=== PATIENT | male | born 1965 | race Caucasian/White ===

== ENCOUNTER → 2021-04-13 | Outpatient (REF) ==
--- NOTE | 2021-04-13 13:07 | REP ---
INDICATION: BACK + NECK PAIN COMPARISON: None. TECHNIQUE: AP, lateral, coned-down views of the lumbar spine. FINDINGS: Alignment and lordosis is maintained through the L4-5 level with moderate multilevel disc space narrowing, endplate sclerosis and subtle marginal spurring. L5-S1 demonstrates chronic bilateral spondylolysis and grade 2 anterolisthesis. No acute fracture/compression injury. IMPRESSION: Chronic L5 spondylolysis with grade 2 spondylolisthesis at L5-S1. Moderate degenerative changes throughout the remainder of the lumbar spine. <Electronically signed by Ghassan Fierro > 04/13/21 [id number]
--- NOTE | 2021-04-13 13:09 | REP ---
INDICATION: BACK + NECK PAIN. COMPARISON: None. TECHNIQUE: AP, lateral, open mouth views of the cervical spine FINDINGS: Moderate to advanced degenerative changes include endplate sclerosis/heterogeneity, disc space narrowing and osteophytosis primarily involving C2-3 and C5-6, C6-7. Mild retrolisthesis at the C2-3 level of 4 mm noted along with mild anterolisthesis of approximately 6 mm at the C7-T1 level. No acute fracture/compression injury. IMPRESSION: Moderate to advanced multilevel degenerative spondylosis. <Electronically signed by Ghassan Fierro > 04/13/21 [id number]
== END ==
LOC: M PLAIMG 12:30
PROVIDERS: ATTEND Internal Medicine
DX: M43.06 Spondylolysis, lumbar region (principal); M25.78 Osteophyte, vertebrae; M47.892 Other spondylosis, cervical region

== ENCOUNTER 2022-07-12 03:18 | Day surgery (SDC) | payer MEDICAID, SELFPAY ==
[~2022-07-12] VITALS: Ht 172.7 cm; Wt 70.1 kg
[2022-07-12] MEDS ORDERED: MORPHINE 2 MG/ML 1ML VIAL IV ONE (05:00)
[2022-07-12] MEDS ORDERED: MIDAZOLAM INJ 2MG/2ML VIAL IV STA (05:04)
[2022-07-12] MEDS ORDERED: MIDAZOLAM INJ 2MG/2ML VIAL IV ONE (05:05)
[2022-07-12] MEDS ORDERED: fentaNYL 100 MCG/2 ML INJECTION IV ONE ×2 (05:05)
[2022-07-12] MEDS ORDERED: propofoL 200 MG/20 ML VIAL As Ordered ONE ×2 (05:38→07:15)
[2022-07-12] MEDS ORDERED: propofoL 200 MG/20 ML VIAL IV.PROC PRN (05:40)
[2022-07-12] MEDS ORDERED: NS 1,000 ML IV SCH (05:40)
[2022-07-12] MEDS ORDERED: MORPHINE 4 MG/ML 1ML VIAL IV ONE (06:25)
[2022-07-12 06:53] LABS: BASO % 0.2 % (0.0-1.0); HEMATOCRIT 40.9 % (42.0-52.0); HEMOGLOBIN 13.7 g/dl (13.5-17.5); LYMPH # 0.6 10^3/uL (1.5-5.0); LYMPH % 3.2 % (24.0-44.0); MEAN CORPUSCULAR HGB CONC 33.5 g/dl (32.0-36.5); MEAN CORPUSCULAR VOLUME 95.6 fl (80.0-96.0); MONO # 0.7 10^3/uL (0.0-0.8); MONO % 3.9 % (2.0-8.0); NEUTROPHILS # 17.3 10^3/uL (1.5-8.5); NEUTROPHILS % 92.2 % (36.0-66.0); PLATELET COUNT, AUTOMATED 195 10^3/uL (150-450); RED BLOOD COUNT 4.28 10^6/uL (4.30-6.10); WHITE BLOOD COUNT 18.8 10^3/uL (4.0-10.0)
[2022-07-12] MEDS ORDERED: diphenhydrAMINE 50MG/ML VIAL IV STA (06:56)
[2022-07-12] MEDS ORDERED: LIDOCAINE 2% 100MG/5ML SDV (FOR ANES.) As Ordered ONE (07:15)
[2022-07-12 07:17] LABS: RSV AMPLIFICATION NEGATIVE (NEGATIVE)
[2022-07-12 07:28] LABS: MAGNESIUM LEVEL 1.9 MG/DL (1.8-2.4)
[2022-07-12 07:30] LABS: BLOOD UREA NITROGEN 19 MG/DL (9-23); CALCIUM LEVEL 7.9 MG/DL (8.5-10.1); CARBON DIOXIDE LEVEL 25 MMOL/L (20-31); CHLORIDE LEVEL 109 MMOL/L (98-107); CREATININE FOR GFR 0.86 MG/DL (0.70-1.30); GLOMERULAR FILTRATION RATE > 60.0 (>56); GLUCOSE, FASTING 112 MG/DL (60-100); POTASSIUM SERUM 3.7 MMOL/L (3.5-5.1); SODIUM LEVEL 141 MMOL/L (136-145)
[2022-07-12] MEDS ORDERED: fentaNYL 100 MCG/2 ML INJECTION As Ordered ONE (08:22)
[2022-07-12] MEDS ORDERED: MIDAZOLAM INJ 2MG/2ML VIAL As Ordered ONE (08:22)
[2022-07-12] MEDS ORDERED: oxyCODONE 5MG TAB PO PRN (09:00)
[2022-07-12] MEDS ORDERED: ONDANSETRON 4MG 2ML VIAL IV PRN (09:00)
[2022-07-12] MEDS ORDERED: fentaNYL 100 MCG/2 ML INJECTION IV PRN (09:00)
[2022-07-12] MEDS: HYDROMORPHONE HCL 0.5 MG/ 0.5 ML SYRINGE IV PRN ×2 (09:13→09:19)
[2022-07-12 10:04] VITALS: BP 152/84
== END 2022-07-12 10:05 | disposition home or self-care (01) ==
LOC: M ED 03:18 → M SDC 03:19
PROVIDERS: ATTEND Orthopaedic Surgery
DX: S43.015A Anterior dislocation of left humerus, initial encounter (principal); S42.252A Displaced fracture of greater tuberosity of left humerus, initial encounter for closed fracture; Y92.092 Bedroom in other non-institutional residence as the place of occurrence of the external cause; F31.9 Bipolar disorder, unspecified
CPT/HCPCS: 23650; 23655; 73020; 73030; 80048; 83735; 85025; 87631; 93005; 93041; 94760; 96374; 96375; 96376; 99285; J2405

== ENCOUNTER → 2022-07-20 | Outpatient (CLI) | payer MEDICAID | LOC: M SOG 07:50 | PROVIDERS: ATTEND Orthopaedic Surgery | DX: S42.252D Displaced fracture of greater tuberosity of left humerus, subsequent encounter for fracture with routine healing (principal) ==

== ENCOUNTER → 2022-07-27 | Outpatient (CLI) | payer MEDICAID | LOC: M PLAIMG 07:43 | PROVIDERS: ATTEND Orthopaedic Surgery | DX: S43.005D Unspecified dislocation of left shoulder joint, subsequent encounter (principal) ==

== ENCOUNTER → 2022-10-05 | Outpatient (CLI) | payer MEDICAID, OTHER | LOC: M SOG 08:20 | PROVIDERS: ATTEND Orthopaedic Surgery | DX: S43.015D Anterior dislocation of left humerus, subsequent encounter (principal) ==

== ENCOUNTER → 2022-11-05 | Outpatient (CLI) | payer OTHER | LOC: M RAD 08:15 | PROVIDERS: ATTEND Orthopaedic Surgery | DX: S44.32XA Injury of axillary nerve, left arm, initial encounter (principal); S42.255A Nondisplaced fracture of greater tuberosity of left humerus, initial encounter for closed fracture ==

== ENCOUNTER → 2023-01-10 | Outpatient (CLI) | payer OTHER | LOC: M SOG 08:36 | PROVIDERS: ATTEND Physician Assistant | DX: M25.532 Pain in left wrist (principal) ==

== ENCOUNTER → 2023-03-27 | Outpatient (REF) | payer OTHER ==
[2023-03-27 14:02] LABS: APPEARANCE, URINE CLEAR (CLEAR); BACTERIA, URINE AUTO NEGATIVE (NEGATIVE); BILIRUBIN, URINE AUTO NEGATIVE (NEGATIVE); BLOOD, URINE BLOOD NEGATIVE (NEGATIVE); COLOR, URINE STRAW (YELLOW); GLUCOSE, URINE (UA) AUTO NEGATIVE (NEGATIVE); KETONE, URINE AUTO NEGATIVE (NEGATIVE); LEUKOCYTE ESTERASE, URINE AUTO NEGATIVE (NEGATIVE); NITRITE, URINE AUTO NEGATIVE (NEGATIVE); PROTEIN, URINE AUTO NEGATIVE (NEGATIVE); RBC, URINE AUTO 0 /HPF (0-3); SPECIFIC GRAVITY URINE AUTO 1.011 (1.002-1.035); SQUAMOUS EPITHELIAL CELL UR AU 0 /HPF (0-6); UROBILINOGEN, URINE AUTO 0.2 mg/dL (0.0-2.0); WBC, URINE AUTO 0 /HPF (0-3)
[2023-03-27 14:11] LABS: BASO # 0.1 10^3/uL (0.0-0.2); BASO % 0.9 % (0.0-1.0); EOS # 0.1 10^3/uL (0.0-0.5); EOS % 1.2 % (0.0-3.0); HEMATOCRIT 41.2 % (42.0-52.0); HEMOGLOBIN 14.3 g/dl (13.5-17.5); LYMPH # 2.2 10^3/uL (1.5-5.0); LYMPH % 26.9 % (24.0-44.0); MEAN CORPUSCULAR HEMOGLOBIN 31.6 pg (27.0-33.0); MEAN CORPUSCULAR HGB CONC 34.7 g/dl (32.0-36.5); MEAN CORPUSCULAR VOLUME 91.2 fl (80.0-96.0); MONO # 0.5 10^3/uL (0.0-0.8); MONO % 6.1 % (2.0-8.0); NEUTROPHILS # 5.3 10^3/uL (1.5-8.5); NEUTROPHILS % 64.8 % (36.0-66.0); PLATELET COUNT, AUTOMATED 217 10^3/uL (150-450); RED BLOOD COUNT 4.52 10^6/uL (4.30-6.10); WHITE BLOOD COUNT 8.2 10^3/uL (4.0-10.0)
[2023-03-27 14:24] LABS: ERYTHROCYTE SEDIMENTATION RATE 5 mm/hr (0-20)
[2023-03-27 14:41] LABS: FREE T4 1.21 NG/DL (0.89-1.76); THYROID STIMULATING HORMONE 0.626 uIU/ML (0.55-4.78)
[2023-03-27 14:42] LABS: C REACTIVE PROTEIN QUANTITATIV < 0.40 MG/DL (<1.0); URIC ACID 3.1 MG/DL (3.7-9.2)
[2023-03-27 14:43] LABS: TOTAL 25(OH) VITAMIN D 45.1 NG/ML (20.0-100.0)
[2023-03-27 14:44] LABS: ALBUMIN 3.8 G/DL (3.2-5.2); ALKALINE PHOSPHATASE 48 U/L (46-116); ALT/SGPT 24 U/L (7.0-40); AST/SGOT 19 U/L (<34); BILIRUBIN,TOTAL 0.3 MG/DL (0.3-1.2); BLOOD UREA NITROGEN 20 MG/DL (9-23); CALCIUM LEVEL 9.1 MG/DL (8.5-10.1); CARBON DIOXIDE LEVEL 27 MMOL/L (20-31); CHLORIDE LEVEL 106 MMOL/L (98-107); CHOLESTEROL LEVEL 115 MG/DL (<200); CHOLESTEROL RISK RATIO 2.37 (<5); CREATININE FOR GFR 0.87 MG/DL (0.70-1.30); GLOMERULAR FILTRATION RATE > 60.0 (>56); GLUCOSE, FASTING 109 MG/DL (60-100); HDL CHOLESTEROL 48.4 MG/DL (>40); LDL CHOLESTEROL 49.2 MG/DL (<100); NON-HDL-C 66.6 MG/DL; POTASSIUM SERUM 4.4 MMOL/L (3.5-5.1); SODIUM LEVEL 139 MMOL/L (136-145); TOTAL PROTEIN 6.3 G/DL (5.7-8.2); TRIGLYCERIDES LEVEL 87 MG/DL (<150)
[2023-03-27 14:45] LABS: RHEUMATOID FACTOR QUANT < 3.5 IU/ML (<14); VITAMIN B12 LEVEL 750 PG/ML (211-911)
[2023-03-27 14:46] LABS: FOLATE 22.3 NG/ML (>5.4)
[2023-03-27 15:24] LABS: HEPATITIS C VIRUS ABY INDEX 0.05 INDEX (<0.8); HIV 1&2 SCREEN NEGATIVE (NEGATIVE)
[2023-03-27 15:26] LABS: GC DNA AMPLIFICATION NEGATIVE (NEGATIVE)
== END ==
LOC: M SFHCADAM 09:26
PROVIDERS: ATTEND Physician Assistant
DX: Z00.00 Encounter for general adult medical examination without abnormal findings (principal); M25.649 Stiffness of unspecified hand, not elsewhere classified; Z11.3 Encounter for screening for infections with a predominantly sexual mode of transmission

== ENCOUNTER → 2023-04-04 | Outpatient (CLI) | payer OTHER | LOC: M SOG 08:06 | PROVIDERS: ATTEND Physician Assistant | DX: M25.532 Pain in left wrist (principal) ==

== ENCOUNTER → 2023-04-28 | Outpatient (CLI) | payer OTHER | LOC: M SOG 07:56 | PROVIDERS: ATTEND Orthopaedic Surgery | DX: M54.2 Cervicalgia (principal); M47.812 Spondylosis without myelopathy or radiculopathy, cervical region ==

== ENCOUNTER → 2023-05-16 | Outpatient (CLI) | payer OTHER | LOC: M PLAIMG 08:16 | PROVIDERS: ATTEND Orthopaedic Surgery | DX: M47.22 Other spondylosis with radiculopathy, cervical region (principal) ==

== ENCOUNTER → 2023-12-27 | Outpatient (CLI) | payer MEDICARE, OTHER | LOC: M RAD 11:43 | PROVIDERS: ATTEND Physician Assistant | DX: R22.41 Localized swelling, mass and lump, right lower limb (principal) ==

== ENCOUNTER → 2024-02-09 | Outpatient (REF) | payer MEDICARE, OTHER | LOC: M LAB REF 17:04 | PROVIDERS: ATTEND Surgery | DX: D17.23 Benign lipomatous neoplasm of skin and subcutaneous tissue of right leg (principal) ==

== ENCOUNTER → 2024-06-04 | Outpatient (CLI) | payer MEDICARE, OTHER ==
[2024-06-04 09:03] LABS: BASO # 0.1 10^3/uL (0.0-0.2); BASO % 0.6 % (0.0-1.0); EOS # 0.1 10^3/uL (0.0-0.5); EOS % 1.4 % (0.0-3.0); HEMATOCRIT 42.2 % (42.0-52.0); HEMOGLOBIN 14.1 g/dl (13.5-17.5); LYMPH # 1.6 10^3/uL (1.5-5.0); LYMPH % 18.7 % (24.0-44.0); MEAN CORPUSCULAR HGB CONC 33.4 g/dl (32.0-36.5); MEAN CORPUSCULAR VOLUME 95.9 fl (80.0-96.0); MONO # 0.6 10^3/uL (0.0-0.8); MONO % 6.8 % (2.0-8.0); NEUTROPHILS % 72.3 % (36.0-66.0); PLATELET COUNT, AUTOMATED 198 10^3/uL (150-450); WHITE BLOOD COUNT 8.4 10^3/uL (4.0-10.0)
[2024-06-04 09:28] LABS: ALBUMIN 3.9 G/DL (3.2-5.2); ALKALINE PHOSPHATASE 43 U/L (40-129); ALT/SGPT 26 U/L (7.0-40); AST/SGOT 20 U/L (<34); BILIRUBIN,TOTAL 0.3 MG/DL (0.3-1.2); BLOOD UREA NITROGEN 21 MG/DL (9-23); CALCIUM LEVEL 9.1 MG/DL (8.5-10.1); CARBON DIOXIDE LEVEL 27 MMOL/L (20-31); CHLORIDE LEVEL 107 MMOL/L (98-107); CHOLESTEROL LEVEL 134 MG/DL (<200); CHOLESTEROL RISK RATIO 2.64 (<5); FREE T4 1.11 NG/DL (0.89-1.76); GLOMERULAR FILTRATION RATE > 60.0 (>56); GLUCOSE, FASTING 83 MG/DL (60-100); HDL CHOLESTEROL 50.7 MG/DL (>40); LDL CHOLESTEROL 55.7 MG/DL (<100); NON-HDL-C 83.3 MG/DL; POTASSIUM SERUM 4.4 MMOL/L (3.5-5.1); SODIUM LEVEL 141 MMOL/L (136-145); TOTAL PROTEIN 6.6 G/DL (5.7-8.2); TRIGLYCERIDES LEVEL 138 MG/DL (<150)
[2024-06-04 09:29] LABS: HEMOGLOBIN A1c 5.3 % (4.0-6.0); THYROID STIMULATING HORMONE 0.664 uIU/ML (0.55-4.78)
== END ==
LOC: M LAB 08:12
PROVIDERS: ATTEND Family Medicine
DX: Z00.00 Encounter for general adult medical examination without abnormal findings (principal); E78.00 Pure hypercholesterolemia, unspecified

== ENCOUNTER → 2025-05-27 | Outpatient (CLI) | payer MEDICARE, MEDICAID ==
[2025-05-27 13:10] LABS: BASO # 0.0 10^3/uL (0.0-0.2); BASO % 0.6 % (0.0-1.0); EOS # 0.0 10^3/uL (0.0-0.5); EOS % 0.6 % (0.0-3.0); LYMPH # 1.6 10^3/uL (1.5-5.0); LYMPH % 22.6 % (24.0-44.0); MONO # 0.6 10^3/uL (0.0-0.8); MONO % 8.9 % (2.0-8.0); NEUTROPHILS # 4.7 10^3/uL (1.5-8.5); NEUTROPHILS % 67.2 % (36.0-66.0); PLATELET COUNT, AUTOMATED 190 10^3/uL (150-450)
[2025-05-27 13:17] LABS: C REACTIVE PROTEIN QUANTITATIV < 0.50 MG/DL (<1.0)
[2025-05-27 13:18] LABS: ALT/SGPT 33 U/L (7.0-40); AST/SGOT 37 U/L (<34); CALCIUM LEVEL 9.1 MG/DL (8.3-10.6); CARBON DIOXIDE LEVEL 28 MMOL/L (20-31); CHLORIDE LEVEL 104 MMOL/L (98-107); CHOLESTEROL LEVEL 120 MG/DL (<200); CHOLESTEROL RISK RATIO 2.20 (<5); CREATININE FOR GFR 0.96 MG/DL (0.70-1.30); GLOMERULAR FILTRATION RATE > 90.0 (>49); LDL CHOLESTEROL 55.8 MG/DL (<100); NON-HDL-C 65.6 MG/DL; POTASSIUM SERUM 4.4 MMOL/L (3.5-5.1); RHEUMATOID FACTOR QUANT < 3.5 IU/ML (<14); SODIUM LEVEL 140 MMOL/L (136-145); TRIGLYCERIDES LEVEL 49 MG/DL (<150)
[2025-05-27 13:20] LABS: FREE T4 1.35 NG/DL (0.89-1.76)
[2025-05-30 19:52] LABS: LYME TOTAL ANTIBODY CIA <= 0.90 Index (<=0.90)
== END ==
LOC: M PLALAB 10:12
PROVIDERS: ATTEND Nurse Practitioner Family
DX: Z00.01 Encounter for general adult medical examination with abnormal findings (principal); M79.10 Myalgia, unspecified site; Z13.6 Encounter for screening for cardiovascular disorders; D50.9 Iron deficiency anemia, unspecified